=== PATIENT | female | born 1965 | race Caucasian/White ===

== ENCOUNTER 2019-06-06 11:55 | Inpatient (IN) | payer OTHER ==
[~2019-06-06] VITALS: Ht 172.7 cm; Wt 113.4 kg
--- NOTE | 2019-06-06 12:07 | NUR ---
REBECCA. REPORT RECEIVED FROM EMS. PT C/O HTN/CHEST TIGHTNESS/BILATERAL ARM PAIN/N&V SINCE 9:30AM. NITROX2/ASPIRIN GIVEN RELOCATION SPECIALIST. PT'S AOX4. RESPS EVEN AND UNLABORED. ALL MONITORS IN PLACE. NSR ON FLIGHT ENGINEER INSTRUCTOR RATE 80'S AT THIS TIME. EDMD AT BEDSIDE TO EVALUATE.
--- NOTE | 2019-06-06 12:08 | NUR ---
EKG DONE AT BEDSIDE BY EMT.
[2019-06-06] MEDS ORDERED: MAALOX/HYOSCYAMINE/LIDOCAINE 45 ML BTL ONE (12:10)
--- NOTE | 2019-06-06 12:12 | NUR ---
PT MEDICATED PER EMAR. PT TOLERATED WELL.
[2019-06-06 12:21] LABS: BASOPHILS # (AUTO) 0.03 x10^3/uL (0-0.1); BASOPHILS % (AUTO) 0 % (0-1); EOSINOPHILS % (AUTO) 1 % (1-7); LYMPHOCYTES # (AUTO) 1.11 x10^3/uL (1-3.4); LYMPHOCYTES % (AUTO) 13 % (22-44); MD NO; MEAN CORPUSCULAR HEMOGLOBIN 30.6 pg (27.0-34.8); MEAN CORPUSCULAR HGB CONC 33.2 g/dL (32.4-35.8); MEAN CORPUSCULAR VOLUME 91.9 fL (80-100); MEAN PLATELET VOLUME 8.3 fL (7.4-10.4); MONOCYTES # (AUTO) 0.51 x10^3/uL (0.2-0.8); MONOCYTES % (AUTO) 6 % (2-9); NEUTROPHILS # (AUTO) 6.64 x10^3/uL (1.8-6.8); NEUTROPHILS % (AUTO) 79 % (42-75); PLATELET COUNT 278 x10^3/uL (130-400); RED BLOOD COUNT 4.68 x10^6/uL (3.82-5.3); RED CELL DISTRIBUTION WIDTH 12.9 % (9.6-15.2)
[2019-06-06] MEDS ORDERED: MAALOX/HYOSCYAMINE/LIDOCAINE 45 ML BTL PO ONE (12:30)
[2019-06-06] MEDS ORDERED: PLEASE ENTER ALLERGIES MC SCH (12:30)
--- NOTE | 2019-06-06 12:31 | NUR ---
PT C/O CP AGAIN. EDMD NOTIFIED. 2ND EKG DONE AT BEDSIDE BY THIS RN PER EDMD VERBAL ORDER.
[2019-06-06 12:33] LABS: ALANINE AMINOTRANSFERASE 39 U/L (12-78); ALBUMIN 3.6 g/dL (3.4-5.0); ANION GAP 7 mmol/L (5-15); CALCIUM 8.6 mg/dL (8.5-10.1); CHLORIDE 104 mmol/L (98-107); CREATININE 0.88 mg/dL (0.55-1.02)
[2019-06-06 12:37] LABS: ALKALINE PHOSPHATASE 96 U/L (45-117); BILIRUBIN,TOTAL 0.3 mg/dL (0.2-1.0); TOTAL PROTEIN 7.2 g/dL (6.4-8.2)
[2019-06-06] MEDS ORDERED: NITROGLYCERIN OINT 2%, 1GM TP ONE ×2 (12:48→13:00)
--- NOTE | 2019-06-06 12:55 | NUR ---
DR CASTILLO AT BEDSIDE, ASSESSMENT IN PROGRESS
--- NOTE | 2019-06-06 12:59 | NUR ---
dr talavera spoke with dr jimenez
[2019-06-06] MEDS ORDERED: MORPHINE SULFATE 4 MG/ML, 1ML ONE ×2 (13:24→14:54)
[2019-06-06] MEDS ORDERED: HEPARIN 5,000 UNITS/ML, 1ML IV ONE (13:30)
[2019-06-06] MEDS ORDERED: MORPHINE SULFATE 4 MG/ML, 1ML IVPush PRN (13:30)
[2019-06-06] MEDS ORDERED: HEPARIN 25,000 UNITS/500ML PMX 500 ML IV PRN (13:30)
[2019-06-06] MEDS ORDERED: SODIUM CHLORIDE FLUSH 10ML SYR IVF PRN (13:30)
[2019-06-06] MEDS ORDERED: HEPARIN 5,000 UNITS/ML, 1ML IV PRN (13:30)
[2019-06-06] MEDS ORDERED: morphine SULFATE 10 MG/ML, 1ML IVPush PRN (13:30)
[2019-06-06] MEDS ORDERED: ONDANSETRON 2MG/ML, 2ML IVPush PRN (13:30)
[2019-06-06] MEDS ORDERED: HEPARIN 25,000 UNITS/500ML PMX 500 ML ONE (13:44)
[2019-06-06] MEDS ORDERED: HEPARIN 5,000 UNITS/ML, 1ML ONE (13:44)
[2019-06-06 13:48] LABS: D-DIMER 0.51 ug/mlFEU (0.00-0.52)
--- NOTE | 2019-06-06 13:54 | NUR ---
HEPARIN DRIP INFUSING AT THIS TIME. PT TOLERATED WELL.
--- NOTE | 2019-06-06 13:55 | NUR ---
PT TO CT NOW.
--- NOTE | 2019-06-06 14:01 | NUR ---
REPORT GIVEN TO LOW MARQUEZ. ALL QUESTIONS ANSWERED.
--- NOTE | 2019-06-06 14:15 | NUR ---
LATE NOTE ENTRY DUE TO PT CARE. TASK RN: FIRST CONTACT WITH PT. Provided pt medicaiton per EMAR. PIV established. Assisted primary RN with medication verification. NADN. No other needs expressed. [place] transported [place]ur[place] to [place].
[2019-06-06] MEDS ORDERED: OMNIPAQUE 350 MG/ML, 100ML BOTTLE ONE (14:16)
--- NOTE | 2019-06-06 14:27 | NUR ---
PT BACK TO ROOM FROM CT AT THIS TIME.
--- NOTE | 2019-06-06 14:29 | NUR ---
dr montes de oca requests labor law professor be activated. called operation to call team in.
--- NOTE | 2019-06-06 14:40 | NUR ---
TASK RN NOTE: MD GONZALES AT BEDSIDE, GAVE RN VERBAL ORDER TO ADMINISTER 1 L NORMAL SALINE WIDE OPEN IN ANTICIPATION FOR INVENTORY AUDIT CLERK.
[2019-06-06] MEDS ORDERED: SODIUM CHLORIDE 0.9% 1,000 ML IV STA (14:44)
--- NOTE | 2019-06-06 14:45 | NUR ---
ECHO IN PROGRESS AT BEDSIDE.
--- NOTE | 2019-06-06 14:55 | NUR ---
TASK RN NOTE: PT REATTACHED TO ALL MONITORS, VS REASSESSED, PT IS 89% ON ROOM AIR. SINUS TACH RATE 100-110 WITH NO ECTOPY ON DIRECTOR OF STATE. PT PLACED ON 2L OXYGEN VIA NC. PT REPORTS INCREASED CHEST PAIN, DENIES SOB. MD GONZALES NOTIFIED OF INCREASED CP AND HYPOXIA. MD AT BEDSIDE TO REASSESS. PT TO GO TO AN/SYQ 13 NAV/C2 OPERATOR WHEN AN/SYQ 13 NAV/C2 OPERATOR IS READY. MD GAVE RN VERBAL ORDER TO ADMINISTER 2 MG MORPHINE.
[2019-06-06] MEDS ORDERED: ASPIRIN 81 MG TABLET CHEW PO ONE (15:00)
[2019-06-06] MEDS ORDERED: SODIUM CHLORIDE 0.9% 1,000 ML IV ONE (15:00)
[2019-06-06] MEDS ORDERED: FENTANYL PF 250 MCG/5ML ONE (15:02)
[2019-06-06] MEDS ORDERED: HEPARIN 1,000 UNITS/ML, 10ML ONE (15:02)
[2019-06-06] MEDS ORDERED: MIDAZOLAM 1 MG/ML, 5ML ONE (15:02)
[2019-06-06] MEDS ORDERED: VERAPAMIL 2.5 MG/ML, 2ML ONE (15:02)
[2019-06-06] MEDS ORDERED: LIDOCAINE-MPF 1%, 5ML ONE (15:02)
[2019-06-06] MEDS ORDERED: BIVALIRUDIN 250 MG ONE (15:07)
--- NOTE | 2019-06-06 15:30 | NUR ---
TASK RN NOTE: FULL REPORT RECEIVED FROM PRIMARY RN MARLON. PT TRANSPORTED TO BILLING AUDITOR AT 1512 BY THIS RN WITH AUTOMATION DESIGN ENGINEER IN PLACE, OXYGEN AT 2L/MIN VIA NC, RUNNING HEPARIN GTT. NS BOLUS COMPLETED PRIOR TO TRANSPORT. PT STATES SHE TOOK 6 BABY ASPIRIN AT 1000 THIS AM. MD GONZALES NOTIFIED, ASPIRIN HELD PER INSTRUCTION. CONSENT SIGNED BY PATIENT, PRE-PROCEDURE PAPERWORK COMPLETED BY THIS RN. PT A&OX4, RESPS EVEN AND UNLABORED, SINUS TACH ON AUTOMATION DESIGN ENGINEER RATE 100'S AT TIME OF TRANSPORT, NO ECTOPY AT TIME OF TRANSPORT. REPORT GIVEN TO BILLING AUDITOR RN MAJOR ON ARRIVAL AT BEDSIDE. FAMILY WENT TO BILLING AUDITOR WITH PT, WAITING IN WAITING ROOM. BILLING AUDITOR STAFF AWARE.
--- NOTE | 2019-06-06 15:35 | NUR ---
PT'S BELONGINGS TAKEN BY PT'S FAMILY.
[2019-06-06] MEDS ORDERED: hydrALAzine 20 MG/ML, 1ML ONE (16:17)
[2019-06-06] MEDS ORDERED: TICAGRELOR 90 MG TABLET ONE (16:20)
[2019-06-06] MEDS ORDERED: LABETALOL 5MG/ML, 20ML IVPush PRN (16:30)
[2019-06-06] MEDS: ONDANSETRON 2MG/ML, 2ML IVPush PRN (16:39)
[2019-06-06] MEDS: SODIUM CHLORIDE 0.9% 1,000 ML IV SCH (17:00)
[2019-06-06] MEDS ORDERED: hydrALAzine 20 MG/ML, 1ML IV PRN (17:00)
[2019-06-06] MEDS ORDERED: [UNRECOGNIZED DRUG - REMARK] MC SCH (17:00)
[2019-06-06] MEDS ORDERED: BISACODYL 5 MG EC TABLET PO PRN (17:00)
[2019-06-06] MEDS ORDERED: LABETALOL 5 MG/ML SYR. (IV ONLY) IVPush PRN (17:30)
[2019-06-06 18:01] VITALS: BP 123/84
[2019-06-06] MEDS: ACETAMINOPHEN 325 MG TABLET PO PRN (20:32)
[2019-06-06] MEDS: ATORVASTATIN 80 MG TABLET PO SCH (20:32)
[2019-06-06] MEDS: TICAGRELOR 90 MG TABLET PO SCH (20:32)
[2019-06-06] MEDS ORDERED: ZOLPIDEM 5MG TABLET PO PRN (21:00)
[2019-06-07] MEDS: ONDANSETRON 2MG/ML, 2ML IVPush PRN ×2 (00:20→09:21)
[2019-06-07] MEDS ORDERED: PROMETHAZINE 25 MG/ML, 1ML ONE (00:54)
[2019-06-07] MEDS: PROMETHAZINE 25 MG/ML, 1ML IM PRN ×2 (00:57→10:20)
[2019-06-07] MEDS: SODIUM CHLORIDE 0.9% 1,000 ML IV SCH ×2 (03:28→15:51)
[2019-06-07 04:00] VITALS: BP 114/78
[2019-06-07] MEDS: ACETAMINOPHEN 325 MG TABLET PO PRN (04:04)
[2019-06-07 04:52] LABS: BASOPHILS # (AUTO) 0.01 x10^3/uL (0-0.1); BASOPHILS % (AUTO) 0 % (0-1); EOSINOPHILS # (AUTO) 0.07 x10^3/uL (0-0.4); EOSINOPHILS % (AUTO) 1 % (1-7); LYMPHOCYTES # (AUTO) 1.15 x10^3/uL (1-3.4); LYMPHOCYTES % (AUTO) 12 % (22-44); MD NO; MEAN CORPUSCULAR HEMOGLOBIN 30.3 pg (27.0-34.8); MEAN CORPUSCULAR HGB CONC 32.8 g/dL (32.4-35.8); MEAN CORPUSCULAR VOLUME 92.2 fL (80-100); MEAN PLATELET VOLUME 8.4 fL (7.4-10.4); MONOCYTES # (AUTO) 0.66 x10^3/uL (0.2-0.8); MONOCYTES % (AUTO) 7 % (2-9); NEUTROPHILS # (AUTO) 7.59 x10^3/uL (1.8-6.8); NEUTROPHILS % (AUTO) 80 % (42-75); PLATELET COUNT 297 x10^3/uL (130-400); RED CELL DISTRIBUTION WIDTH 13.2 % (9.6-15.2)
[2019-06-07 05:03] LABS: ANION GAP 7 mmol/L (5-15); CALCIUM 8.2 mg/dL (8.5-10.1); CHLORIDE 105 mmol/L (98-107); CREATININE 0.83 mg/dL (0.55-1.02)
[2019-06-07 05:04] LABS: CHOLESTEROL, TOTAL 207 mg/dL (140-239)
[2019-06-07 05:14] LABS: CHOL/HDL RATIO 3.1; HDL CHOL % 32 % (28-40); HDL CHOLESTEROL (DIRECT) 66 mg/dL (40-60); LDL CHOLESTEROL,CALCULATED 117 mg/dL (54-169); LDL/HDL RATIO 1.8 (0.5-3.0); TRIGLYCERIDES 119 mg/dL (50-200); VLDL CHOLESTEROL 24 mg/dL (0-25)
[2019-06-07] MEDS: METOPROLOL SUCCINATE 25 MG TAB.ER.24H PO SCH (06:23)
[2019-06-07] MEDS ORDERED: RAMIPRIL 2.5 MG CAPSULE PO SCH (09:00)
[2019-06-07] MEDS: ASPIRIN 81 MG TABLET EC PO SCH (09:21)
[2019-06-07] MEDS: TICAGRELOR 90 MG TABLET PO SCH ×2 (09:21→19:53)
[2019-06-07] MEDS: RAMIPRIL 5 MG CAP PO SCH (12:00)
[2019-06-07] MEDS ORDERED: FUROSEMIDE 40 MG/4 ML ONE (14:04)
[2019-06-07] MEDS ORDERED: KETOROLAC 30 MG/1 ML IVPush ONE (16:00)
[2019-06-07] MEDS ORDERED: IBUPROFEN 600 MG TABLET ONE (19:41)
[2019-06-07] MEDS: ATORVASTATIN 80 MG TABLET PO SCH (19:53)
[2019-06-07] MEDS ORDERED: IBUPROFEN 800 MG TABLET PO SCH (22:00)
[2019-06-08] MEDS ORDERED: SODIUM CHLORIDE 0.9%, 500ML IVBOLUS ONE (02:30)
[2019-06-08] MEDS ORDERED: IBUPROFEN 800 MG TABLET PO SCH (04:00)
[2019-06-08] MEDS ORDERED: NOREPINEPHRINE 4 MG in SODIUM CHLORIDE 0.9% 246 ML IV PRN (04:00)
[2019-06-08 06:17] LABS: BASOPHILS # (AUTO) 0.01 x10^3/uL (0-0.1); BASOPHILS % (AUTO) 0 % (0-1); EOSINOPHILS # (AUTO) 0.13 x10^3/uL (0-0.4); EOSINOPHILS % (AUTO) 2 % (1-7); LYMPHOCYTES # (AUTO) 1.34 x10^3/uL (1-3.4); LYMPHOCYTES % (AUTO) 17 % (22-44); MD NO; MEAN CORPUSCULAR HEMOGLOBIN 29.9 pg (27.0-34.8); MEAN CORPUSCULAR HGB CONC 32.6 g/dL (32.4-35.8); MEAN CORPUSCULAR VOLUME 91.8 fL (80-100); MEAN PLATELET VOLUME 8.5 fL (7.4-10.4); MONOCYTES # (AUTO) 0.49 x10^3/uL (0.2-0.8); MONOCYTES % (AUTO) 6 % (2-9); NEUTROPHILS # (AUTO) 5.79 x10^3/uL (1.8-6.8); NEUTROPHILS % (AUTO) 75 % (42-75); PLATELET COUNT 242 x10^3/uL (130-400); RED BLOOD COUNT 4.26 x10^6/uL (3.82-5.3); RED CELL DISTRIBUTION WIDTH 13.6 % (9.6-15.2)
[2019-06-08 06:30] LABS: ALANINE AMINOTRANSFERASE 35 U/L (12-78); ALBUMIN 2.8 g/dL (3.4-5.0); ANION GAP 7 mmol/L (5-15); CALCIUM 8.3 mg/dL (8.5-10.1); CHLORIDE 110 mmol/L (98-107); CREATININE 0.88 mg/dL (0.55-1.02)
[2019-06-08 06:32] LABS: ALKALINE PHOSPHATASE 74 U/L (45-117); BILIRUBIN,TOTAL 0.6 mg/dL (0.2-1.0); TOTAL PROTEIN 5.9 g/dL (6.4-8.2)
[2019-06-08] MEDS: RAMIPRIL 5 MG CAP PO SCH (08:22)
[2019-06-08] MEDS: METOPROLOL SUCCINATE 25 MG TAB.ER.24H PO SCH (08:23)
[2019-06-08] MEDS: TICAGRELOR 90 MG TABLET PO SCH ×2 (09:26→21:09)
[2019-06-08] MEDS: ASPIRIN 81 MG TABLET EC PO SCH (09:26)
[2019-06-08] MEDS: PROMETHAZINE 25 MG/ML, 1ML IM PRN ×2 (10:44→21:10)
[2019-06-08] MEDS ORDERED: SODIUM CHLORIDE 0.9% 1,000 ML IV SCH (17:00)
[2019-06-08] MEDS: ATORVASTATIN 80 MG TABLET PO SCH (21:09)
[2019-06-09] MEDS: METOPROLOL SUCCINATE 25 MG TAB.ER.24H PO SCH (06:03)
[2019-06-09] MEDS: TICAGRELOR 90 MG TABLET PO SCH ×2 (08:45→19:45)
[2019-06-09] MEDS: RAMIPRIL 5 MG CAP PO SCH (08:46)
[2019-06-09] MEDS: ASPIRIN 81 MG TABLET EC PO SCH (08:46)
[2019-06-09] MEDS: ONDANSETRON 2MG/ML, 2ML IVPush PRN (09:48)
[2019-06-09] MEDS: PROMETHAZINE 25 MG/ML, 1ML IM PRN ×2 (11:18→19:42)
[2019-06-09] MEDS: ACETAMINOPHEN 325 MG TABLET PO PRN (11:18)
[2019-06-09 12:58] VITALS: BP 114/78
[2019-06-09 18:38] VITALS: BP 130/85
[2019-06-09 19:43] VITALS: BP 135/85
[2019-06-09] MEDS: ATORVASTATIN 80 MG TABLET PO SCH (19:45)
[2019-06-10 01:29] VITALS: BP 113/74
[2019-06-10] MEDS: PROMETHAZINE 25 MG/ML, 1ML IM PRN (03:15)
[2019-06-10] MEDS: METOPROLOL SUCCINATE 25 MG TAB.ER.24H PO SCH (05:56)
[2019-06-10 05:58] VITALS: BP 113/70
[2019-06-10 07:54] VITALS: BP 102/67
[2019-06-10] MEDS ORDERED: TICA90TA PO (09:58)
[2019-06-10] MEDS ORDERED: RAMI5CAP35 PO (09:58)
[2019-06-10] MEDS ORDERED: ATOR-2 PO (09:58)
[2019-06-10] MEDS ORDERED: ASPI81TA45 PO (09:58)
[2019-06-10] MEDS ORDERED: METO25TA91 PO (09:58)
[2019-06-10] MEDS: TICAGRELOR 90 MG TABLET PO SCH (10:05)
[2019-06-10] MEDS: ASPIRIN 81 MG TABLET EC PO SCH (10:05)
[2019-06-10] MEDS: RAMIPRIL 5 MG CAP PO SCH (10:05)
== END 2019-06-10 13:00 | disposition home or self-care (01) | DRG 246 ==
LOC: ED 13:25 → EDIP 13:44 → CCU 16:38 → 5SO 06-09 11:13 → DCLOUNGE 06-10 12:35
PROVIDERS: ADMIT Internal Medicine; ATTEND Internal Medicine
PROC: 027135Z Dilation of Coronary Artery, Two Arteries with Two Drug-eluting Intraluminal Devices, Percutaneous Approach (ICD-10-PCS; principal; 2019-06-06)
PROC: 4A023N7 Measurement of Cardiac Sampling and Pressure, Left Heart, Percutaneous Approach (ICD-10-PCS; 2019-06-06)
PROC: B211YZZ Fluoroscopy of Multiple Coronary Arteries using Other Contrast (ICD-10-PCS; 2019-06-06)
PROC: B215YZZ Fluoroscopy of Left Heart using Other Contrast (ICD-10-PCS; 2019-06-06)
DX: I21.4 Non-ST elevation (NSTEMI) myocardial infarction (principal); I50.43 Acute on chronic combined systolic (congestive) and diastolic (congestive) heart failure; E78.5 Hyperlipidemia, unspecified; G43.909 Migraine, unspecified, not intractable, without status migrainosus; G89.29 Other chronic pain; I11.0 Hypertensive heart disease with heart failure; I25.10 Atherosclerotic heart disease of native coronary artery without angina pectoris; I25.5 Ischemic cardiomyopathy; Z82.49 Family history of ischemic heart disease and other diseases of the circulatory system; Z86.711 Personal history of pulmonary embolism; Z86.718 Personal history of other venous thrombosis and embolism; Z87.891 Personal history of nicotine dependence; Z96.649 Presence of unspecified artificial hip joint
CPT/HCPCS: 36415; 93458; 96374; 99285; C9600; C9601; 71045; 71275; 80048; 80053; 80061; 83690; 84443; 84484; 85025; 85379; 85520; 87081; 93005; 93306; 93308; 93321; 93325; 99156; 99157; C1769; C1894; G0378; J0583; J1644; J1885; J2250; J2405; J2550; J3010; Q9967; C1725; C1874; C1887; J0360; J2270; J7030; J7040; J7050